=== PATIENT | female | born 1940 | race Caucasian/White ===

== ENCOUNTER 2023-05-03 15:46 | Emergency (ER) | payer MEDICARE, MEDICAID ==
[~2023-05-03] VITALS: Ht 152.4 cm; Wt 71.8 kg
[2023-05-03 17:53] VITALS: TEMP 98.1
[2023-05-03 19:30] LABS: ALANINE AMINOTRANSFERASE 28 U/L (12-78); ALBUMIN 3.8 G/DL (3.4-5.0); ALKALINE PHOSPHATASE 37 IU/L (46-116); ANION GAP 13 (8-16); ASPARTATE AMINO TRANSFERASE 20 U/L (10-37); BILIRUBIN,TOTAL 0.5 MG/DL (0.1-1.0); BLOOD UREA NITROGEN 15 MG/DL (7-18); BUN/CREATININE RATIO 17.2 (10.0-20.0); CHLORIDE 101 MMOL/L (99-107); CREATININE 0.87 MG/DL (0.40-0.90); GLUCOSE 134 MG/DL (70-104); POTASSIUM 3.8 MMOL/L (3.5-5.1); SODIUM 138 MMOL/L (135-145); TOTAL CARBON DIOXIDE 24.5 MMOL/L (24-32); TOTAL PROTEIN 7.5 G/DL (6.4-8.2); eCRCL 36 ML/MIN; eGFR 62 ML/MIN
[2023-05-03 19:41] LABS: LIPASE 34 U/L (16-77); MAGNESIUM 1.9 MG/DL (1.5-2.4); PRO BRAIN NATRIURETIC PEPTIDE 249 PG/ML (0-450); THYROID STIMULATING HORMONE 0.99 ulU/ml (0.34-4.50)
[2023-05-03] MEDS ORDERED: LANS30CA37 PO (21:54)
[2023-05-03 22:11] VITALS: BP 147/64; PULSE 89; RESP 16; O2SAT 99
== END 2023-05-03 22:14 | disposition home or self-care (01) ==
LOC: ER 15:48
DX: K29.00 Acute gastritis without bleeding (principal); E78.00 Pure hypercholesterolemia, unspecified; I10 Essential (primary) hypertension; E11.9 Type 2 diabetes mellitus without complications; Z88.2 Allergy status to sulfonamides; Z88.1 Allergy status to other antibiotic agents; Z79.899 Other long term (current) drug therapy
CPT/HCPCS: 36415; 76700; 80053; 83690; 83735; 83880; 84439; 84443; 84484; 93005; 99285

== ENCOUNTER 2024-08-19 15:53 | Emergency (ER) | payer MEDICARE, MEDICAID ==
[~2024-08-19] VITALS: Ht 154.9 cm; Wt 63.1 kg
[~2024-08-19 15:53] MED LIST: LANS30CA37 PO
[2024-08-19 16:13] VITALS: TEMP 97.6
--- NOTE | 2024-08-19 16:51 | RADIOLOGY REPORT ---
Indication: ANKLE PAIN Technique: 3 views left ankle Comparison: None FINDINGS/IMPRESSION: Cortical irregularity along the anterior dorsal aspect of the talus may represent small avulsion frac ture. Correlate with point tenderness. Anterior left ankle soft tissue edema. Inferior calcaneal spurring. Achilles enthesopathy. Mild lateral malleolar soft tissue edema.
--- NOTE | 2024-08-19 16:53 | RADIOLOGY REPORT ---
CLINICAL INDICATION: WRIST PAIN TECHNIQUE: 3 views left wrist DI WRIST, COMPLETE (3VW MIN) Comparison: None FINDINGS/IMPRESSION: : Fracture of the radial metaphysis. No ulnar styloid process fracture. Carpal bones intact
--- NOTE | 2024-08-19 17:31 | Physician Documentation ---
History of Present Illness ~ Chief Complaint: Wrist pain Stated Complaint: FALL Time Seen by MD: 16:55 HPI Very pleasant 84-year-old female presents after falling on her left wrist and twisting her left ankle today denies any head strike or loss of consciousness. Primary complaint is her the wrist Day of Onset: Aug 19, 2024 Tetanus within 5 years: No Medication Reconciliation Allergies: Coded Allergies: Sulfa (Sulfonamide Antibiotics) (Unverified Allergy, Unknown, 05/03/23) amlodipine (Unverified Allergy, Unknown, 05/03/23) ciprofloxacin (Unverified Allergy, Unknown, 05/03/23) etodolac (Unverified Allergy, Unknown, 05/03/23) glipizide (Unverified Allergy, Unknown, 05/03/23) Scheduled Lansoprazole (Prevacid), 1 CAP PO DAILY Past Medical History Past Medical History: High Cholesterol, Hypertension, Diabetes Past Surgical History: no surgical history Alcohol Use: None Drug Use: none Lives with: Family Lives In: Home Review of Systems All Other Systems at this time: Reviewed and Negative ROS As stated above in the HPI, otherwise all systems are reviewed and negative. Physical Exam Vital Signs: Temperature: 97.6, Source: Temporal, Heart Rate: 61, Respiratory Rate: 15, BP: 136/62, Pulse Oximetry: 97, Weight: 63.100 Physical Exam General: Alert, no apparent distress. HEENT: PERRL, EOMI, no injection, moist mucous membranes. Extremities: Normal range of motion, no deformity. left rwrist natable for sweling lateral aspect, left ankle swelling inferior of left malleous Neurologic: Oriented x4. Psychiatric: Normal mood and affect. Skin: Normal color, warm and dry. No edema, no ecchymosis. 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 The place the patient in the sugar-tong. Per my interpretation, I did not find any sign of a talus fracture on on the patient's left foot however the radiologist did. We will place patient in a orthotic boot and have her follow up with Orthopedics in the outpatient setting Departure Disposition: HOME / SELF CARE / HOMELESS Impression: Primary Impression: Wrist joint pain Additional Impressions: Closed metaphyseal torus fracture of distal end of radius Talus fracture Discharge Instructions: Ankle Fracture, Wrist Fracture Treated With Immobilization Additional Instructions: Recommend making an appointment with your primary care to obtain a referral to go see an orthopedic surgeon for further evaluation. Take medication as prescribed Referrals: NO PRIMARY CARE PROVIDER (PCP) CHAPITO COX Jr., MD Prescriptions Hydrocodone Bit/Acetaminophen 5/325 MG ([place] 5/325 MG) 5 Mg/325 Mg Tablet 1 TAB PO Q6H PRN for pain, #14 TAB Prov: TREMAINE STONER NP 08/19/24 Signature Scribe Signature: v Attestation: Scribed for Tremaine Stoner Beam Racker by Tremaine Ghotra NP . 08/19/24 17:45 TREMAINE STONER NP Aug 19, 2024 17:31
[2024-08-19] MEDS ORDERED: HYDR-3965 PO (17:47)
[2024-08-19 18:03] VITALS: BP 130/57; PULSE 56; RESP 18; O2SAT 98
== END 2024-08-19 18:20 | disposition home or self-care (01) ==
LOC: ER 15:53
DX: S52.522A Torus fracture of lower end of left radius, initial encounter for closed fracture (principal); S92.152A Displaced avulsion fracture (chip fracture) of left talus, initial encounter for closed fracture; E11.9 Type 2 diabetes mellitus without complications; E78.00 Pure hypercholesterolemia, unspecified; I10 Essential (primary) hypertension; Z88.1 Allergy status to other antibiotic agents; Z88.2 Allergy status to sulfonamides; Z88.8 Allergy status to other drugs, medicaments and biological substances; W19.XXXA Unspecified fall, initial encounter; Y93.89 Activity, other specified; Y92.89 Other specified places as the place of occurrence of the external cause; Y99.8 Other external cause status
CPT/HCPCS: 29125; 73110; 73610; 99284; A4565; A6446; A6449; L4360